=== PATIENT | female | born 1975 | race American Indian/Alaskan Native ===

== ENCOUNTER 2020-08-09 17:06 | Emergency (ER) | payer MEDICAID ==
[~2020-08-09] VITALS: Ht 157.5 cm; Wt 68.2 kg
[~2020-08-09 17:06] MED LIST: LORA10TA7 PO; OMEP40CA13 PO; VENL75TA4 PO
[2020-08-09 17:25] VITALS: BP 126/79
[2020-08-09] MEDS ORDERED: MUPI22OI30 TOP (17:44)
[2020-08-09] MEDS ORDERED: CEPH250T PO (17:44)
[2020-08-09] MEDS ORDERED: SULF1TAB45 PO (17:44)
== END 2020-08-09 17:56 | disposition home or self-care (01) ==
LOC: ER 17:06
DX: L08.89 Other specified local infections of the skin and subcutaneous tissue (principal); J45.909 Unspecified asthma, uncomplicated; Z86.14 Personal history of Methicillin resistant Staphylococcus aureus infection; Z98.890 Other specified postprocedural states; Z98.51 Tubal ligation status; Z88.5 Allergy status to narcotic agent; Z79.899 Other long term (current) drug therapy
CPT/HCPCS: 99283

== ENCOUNTER 2021-09-12 13:56 | Emergency (ER) | payer MEDICAID ==
[~2021-09-12 13:56] MED LIST changes: -OMEP40CA13 PO; +OMEP40CA21 PO
== END 2021-09-12 17:28 | disposition left against medical advice (07) ==
LOC: ER 13:56
DX: L23.7 Allergic contact dermatitis due to plants, except food (principal); Z53.21 Procedure and treatment not carried out due to patient leaving prior to being seen by health care provider

== ENCOUNTER 2023-06-29 18:31 | Emergency (ER) | payer MEDICAID ==
[~2023-06-29] VITALS: Ht 157.5 cm; Wt 76.0 kg
[2023-06-29 18:43] VITALS: BP 126/75; PULSE 86; TEMP 98.1; O2SAT 98
[2023-06-29] MEDS ORDERED: DOXY-1 PO (20:01)
[2023-06-29] MEDS ORDERED: NAPR-56 PO (20:01)
[2023-06-29 20:20] VITALS: RESP 16
[2023-06-29] MEDS: ketorolac trometh inj. 60 MG/2 ML VIAL IM ONE (20:20)
== END 2023-06-29 20:28 | disposition home or self-care (01) ==
LOC: ER 18:32
DX: K04.7 Periapical abscess without sinus (principal); J45.909 Unspecified asthma, uncomplicated; Z86.14 Personal history of Methicillin resistant Staphylococcus aureus infection
CPT/HCPCS: 96372; 99283; J1885

== ENCOUNTER 2024-05-29 08:05 | Emergency (ER) | payer MEDICAID ==
[~2024-05-29] VITALS: Ht 162.6 cm; Wt 75.5 kg
[2024-05-29] MEDS ORDERED: CLIN-97 PO (10:37)
[2024-05-29 10:54] VITALS: BP 133/75; PULSE 65; RESP 16; TEMP 98.1; O2SAT 98
== END 2024-05-29 10:57 | disposition home or self-care (01) ==
LOC: ER 08:06
DX: K04.7 Periapical abscess without sinus (principal); J45.909 Unspecified asthma, uncomplicated; Z88.5 Allergy status to narcotic agent; Z98.51 Tubal ligation status; Z98.890 Other specified postprocedural states
CPT/HCPCS: 99283

== ENCOUNTER 2024-12-26 23:57 | Emergency (ER) | payer MEDICAID ==
[~2024-12-26] VITALS: Ht 157.5 cm; Wt 68.2 kg
[~2024-12-26 23:57] MED LIST changes: +CLIN-224 PO
[2024-12-27] VITALS: BP 132/81; PULSE 102; RESP 16; TEMP 97.7; O2SAT 95
--- NOTE | 2024-12-27 00:14 | Physician Documentation ---
History of Present Illness General Chief Complaint: Abscess Stated Complaint: ARM ABCESS Time Seen by MD: 00:13 Primary Medical Doctor: Dr. Yvon Lazo History of Present Illness Initial Comments Patient is a 49-year-old female who states that she was in attempting to inject IV drugs in missed her vein on the right forearm two days ago. Patient states she has developed redness to the right forearm and to the lower right upper arm. Patient complains of some slight pain to that region as well. Patient complains of some chills she denies any fevers. Patient's symptoms are moderate and persistent. Medication Reconciliation Allergies: Coded Allergies: codeine (Verified Allergy, Intermediate, 06/29/23) Scheduled Cephalexin*Monohydrate* (Keflex*), 2 CAP PO BID Clindamycin HCL* (Clindamycin HCL*), 1 CAP PO Q6H Loratadine (Loratadine), 1 TAB PO DAILY, (Reported) Omeprazole (Prilosec), 1 CAP PO DAILY, (Reported) Sulfamethoxazole/Trimethoprim (Septra Ds Tab), 1 TAB PO BID Venlafaxine HCl (Venlafaxine HCl), 1 TAB PO DAILY, (Reported) Past Medical History Past Medical History: Asthma, MRSA Abscess Past Surgical History: , tubal ligation Drug Use: none Lives In: Home Review of Systems All Other Systems at this time: Reviewed and Negative Physical Exam Physical Exam Vital Signs: Temperature: 97.7, Source: Oral, Heart Rate: 102, Respiratory Rate: 16, BP: 132/81, Pulse Oximetry: 95, Weight: 68.180 Oxygen Flow Rate: 0 Physical Exam VITALS: Reviewed and as above. GENERAL: Alert, no apparent distress. HEENT: Normocephalic, atraumatic, PERRL, EOMI, dry mucosa, no erythema BACK: No CVA tenderness, or swelling MUSCULOSKELETAL: No deformities, no edema SKIN: Warm and dry, patient has an area of proximally 5 x 5 cm of erythema to the anterior lower upper arm just above the elbow there was no fluctuance or induration. The patient also has an area to the volar forearm that is starts at the wrist and extends up the arm a 8 x 4 cm. There was no fluctuance or induration. NEURO: Oriented x4, No motor or sensory deficit PSYCH: Normal mood and affect, no agitation Progress Results/Orders Results/Orders Orders - JENNA TRIMBLE MD Cephalexin Capsule (Keflex Capsule) (12/27/24 00:25) Sulfamethox/Trimetho. Ds Tab (Septra Ds (12/27/24 00:25) Vital Signs 12/27/24 00:00 Temp 97.7 Pulse 102 Resp 16 B/P (MAP) 132/81 Pulse Ox 95 O2 Flow Rate 0 Medical Decision Making Findings Patient with two areas of cellulitis there was no abscess appreciated on exam this time the patient is nontoxic the patient will be given a dose of Keflex and Septra here in the emergency department. The patient will be discharged with instructions to follow up as an outpatient. Prior hospitalizations has been re viewed. Patient's pulse oximetry is been interpreted as normal the patient has been advised to return for worsening of her symptoms. Departure Time of Disposition: 00:25 Disposition: 01 HOME / SELF CARE / HOMELESS Impression: Primary Impression: Cellulitis Qualified Codes: L03.113 - Cellulitis of right upper limb Discharge Instructions: Cellulitis, Adult, [id number] Referrals: NO PRIMARY CARE PROVIDER (PCP) Prescriptions Sulfamethoxazole/Trimethoprim (Septra Ds Tab) 800 Mg/160 Mg Tablet 1 TAB PO BID, #14 TAB Prov: JENNA TRIMBLE MD 12/27/24 Cephalexin*Monohydrate* (Keflex*) 500 Mg Capsule 2 CAP PO BID, #28 CAP Prov: JENNA TRIMBLE MD 12/27/24 Signature Scribe Signature: No scribe Attestation: The note accurately reflects work and decisions made by me.Jenna Trimble MD 12/27/24 00:26 JENNA TRIMBLE MD Dec 27, 2024 00:14
[2024-12-27] MEDS ORDERED: CEPH-585 PO (00:23)
[2024-12-27] MEDS ORDERED: SULF1TAB45 PO (00:23)
[2024-12-27] MEDS: sulfamethoxazole/trimethoprim DS (800/160mg) tablet PO ONE (00:33)
== END 2024-12-27 00:42 | disposition home or self-care (01) ==
LOC: ER 23:58
DX: L03.113 Cellulitis of right upper limb (principal); J45.909 Unspecified asthma, uncomplicated; Z88.5 Allergy status to narcotic agent; Z98.51 Tubal ligation status; Z79.899 Other long term (current) drug therapy
CPT/HCPCS: 99283